=== PATIENT | male | born 1965 | race Caucasian/White ===

== ENCOUNTER 2019-04-21 06:50 | Emergency (ER) | payer OTHER ==
[~2019-04-21] VITALS: Ht 162.6 cm; Wt 77.1 kg
[2019-04-21 06:54] VITALS: BP 159/99; PULSE 71; RESP 18; Ht 162.6 cm; Wt 77.1 kg
[2019-04-21] MEDS ORDERED: BENZ-6 PO (07:16)
[2019-04-21] MEDS ORDERED: GUAI5SYR2 PO (07:16)
--- NOTE | 2019-04-21 07:17 | ERD ---
ER Documentation Chief Complaint Chief Complaint cough & sorethroat x3 days, worse 2 NIGHT HPI 54-year-old male presents the ED complaining of cough x3 days. He reports that he is been having a dry cough that is constant and annoying. The cough is keeping him up at night. He denies smoking cigarettes but states he used to smoke marijuana until 2 weeks ago. He denies a history of asthma or COPD. He denies any fevers or any other symptoms at this time. He has taken cebc-gob-fxratqe cough syrup with no relief of his symptoms. Nothing seems to improve his cough. He denies any wheezing, shortness of breath or signs of respiratory distress. He denies medical history. ROS All systems reviewed and are negative except as per history of present illness. Medications Home Meds Active Scripts Ibuprofen* (Motrin*) 600 Mg Tab, 600 MG PO Q6H PRN for PAIN AND OR ELEVATED TEMP, #30 TAB Prov:IVETH DICKINSON PA-C 04/21/19 Guaifenesin-Dextromethorphan* (Robitussin* DM) 100MG/10MG/5ML Syrup, 10 ML PO Q4H PRN for COUGH for 7 Days, ML Prov:IVETH DICKINSON PA-C 04/21/19 Benzonatate* (Tessalon Perle*) 100 Mg Capsule, 100 MG PO TID, #30 CAP Prov:IVETH DICKINSON PA-C 04/21/19 Allergies Allergies: Coded Allergies: No Known Allergy (Unverified , 04/21/19) FmHx Family History: No diabetes Physical Exam Vitals Vital Signs Date Temp Pulse Resp B/P (MAP) Pulse Ox O2 O2 Flow FiO2 Time Delivery Rate 04/21/19 98.6 71 18 159/99 98 06:54 (119) Physical Exam Const: No acute distress Head: Atraumatic Eyes: Normal Conjunctiva ENT: Normal External Ears, Nose and Mouth. Neck: Full range of motion. No meningismus. Resp: Clear to auscultation bilaterally, no wheezing, rales, crackles Cardio: Regular rate and rhythm, no murmurs Abd: Soft, non tender, non distended. Normal bowel sounds Skin: No petechiae or rashes Back: Slight tenderness to the C-spine midline Ext: No cyanosis, or edema Neur: Awake and alert Psych: Normal Mood and Affect Procedures/MDM ED COURSE: The patient was stable throughout ED course. I kept the patient informed of laboratory and diagnostic imaging results throughout the ED course. PROCEDURES: none MEDICATIONS GIVEN: [None.] MEDICAL DECISION MAKING: Patient is a 54-year-old male complaining of a cough x3 days. He denies any fevers or any other symptoms at this time. On physical exam patient is in no a cute distress, shows no signs of wheezing, dyspnea, or signs of respiratory distress. Patient's lungs are clear to auscultation bilaterally. . This patient presents to the ED with symptoms consistent with a viral acute upper respiratory infection. Patient's physical exam includes lungs which were clear to auscultation and a normal pulse oximetry. There is a low suspicion for pne umonia, pneumothorax, mononucleosis, pulmonary embolism, epiglottitis, viral/strep pharyngitis, sinusitis, myocarditis, pericarditis, endocarditis, peritonsillar abscess, mastoiditis, retropharyngeal abscess, meningitis, sepsis, acute abdomen or other emergent conditions. Fluids, rest, and symptomatic treatment are recommended for the management of patient's symptoms. Vital signs were reviewed. Patient is afebrile. Patient was not hypoxic. Patient was hemodynamically stable. Patient was told to follow up with primary care for further care and management. PRESCRIPTION: Ibuprofen, Robitussin, Tessalon Perles DISCHARGE: At this time, patient is stable for discharge and outpatient management. I have instructed the patient to follow-up with his/her primary care physician in 1-2 days. I have discussed with the patient the possibility of needing to see a specialist for further workup and imaging studies if symptoms persist. I have instructed the patient to promptly return to the ER for any new or worsening symptoms including increased pain, fever, nausea, vomiting, weakness or LOC. The patient expressed understanding of and agreement with this plan. All questions were answered. Home care instructions were provided. Disclaimer: Inadvertent spelling and grammatical errors are likely due to EHR/dictation software use and do not reflect on the overall quality of patient care. Also, please note that the electronic time recorded on this note does not necessarily reflect the actual time of the patient encounter. Departure Diagnosis: Primary Impression: Cough Condition: Fair Patient Instructions: Cough, Chronic, Uncertain Cause, (Adult) Referrals: COMMUNITY CLINICS YOU HAVE RECEIVED A MEDICAL SCREENING EXAM AND THE RESULTS INDICATE THAT YOU DO NOT HAVE A CONDITION THAT REQUIRES URGENT TREATMENT IN THE EMERGENCY DEPARTMENT. FURTHER EVALUATION AND TREATMENT OF YOUR CONDITION CAN WAIT UNTIL YOU ARE SEEN IN YOUR DOCTORS OFFICE WITHIN THE NEXT 1-2 DAYS. IT IS YOUR RESPONSIBILITY TO MAKE AN APPOINTMENT FOR FOLOW-UP CARE. IF YOU HAVE A PRIMARY DOCTOR --you should call your primary doctor and schedule an appointment IF YOU DO NOT HAVE A PRIMARY DOCTOR YOU CAN CALL OUR PHYSICIAN REFERRAL HOTLINE AT IF YOU CAN NOT AFFORD TO SEE A PHYSICIAN YOU CAN CHOSE FROM THE FOLLOWING [facility] [address] [facility]. [facility] [address] [address] [facility] [address] [facility]. [facility] [address] [facility]. [facility] [address] [facility]. [facility] YOU HAVE RECEIVED A MEDICAL SCREENING EXAM AND THE RESULTS INDICATE THAT YOU DO NOT HAVE A CONDITION THAT REQUIRES URGENT TREATMENT IN THE EMERGENCY DEPARTMENT. FURTHER EVALUATION AND TREATMENT OF YOUR CONDITION CAN WAIT UNTIL YOU ARE SEEN IN YOUR DOCTORS OFFICE WITHIN THE NEXT 1-2 DAYS. IT IS YOUR RESPONSIBILITY TO MAKE AN APPOINTMENT FOR FOLOW-UP CARE. IF YOU HAVE A PRIMARY DOCTOR --you should call your primary doctor and schedule and appointment IF YOU DO NOT HAVE A PRIMARY DOCTOR YOU CAN CALL OUR PHYSICIAN REFERRAL HOTLINE AT . IF YOU CAN NOT AFFORD TO SEE A PHYSICIAN YOU CAN CHOSE FROM THE FOLLOWING [facility]: [facility] [address] [place] [address] [facility] [address] [place] [address] [facility] [address] [place] [address] Additional Instructions: Call 1 of the numbers in the packet to the community clinic in order to establish care with the primary care provider Call your primary care doctor TOMORROW for an appointment during the next 1-2 days.See the doctor sooner or return here if your condition worsens before your appointment time. IVETH DICKINSON PA-C Apr 21, 2019 07:17
[2019-04-21] MEDS ORDERED: IBUP-1542 PO (07:18)
== END 2019-04-21 07:32 | disposition home or self-care (01) ==
LOC: FTE 06:50
DX: R05 Cough (principal)
CPT/HCPCS: 99283